=== PATIENT | female | born 1960 | race Caucasian/White ===

== ENCOUNTER 2017-11-14 13:31 | Inpatient (IN) | payer BC, SELFPAY ==
[2017-11-14] VITALS (7 sets, daily range): BP systolic 132–155; BP diastolic 81–111; PULSE 82–134; RESP 18–24; TEMP 36.7–36.9; O2SAT 95–98; BMI 37.3; BMI 34.1
--- NOTE | 2017-11-14 13:45 | XR_ITS ---
XR chest 2V HISTORY: Shortness of breath ITS.REASON: sob ORDERING PHYSICIAN: Arnoldo Roy MD PATIENT AGE: 56 years COMPARISON: None available FINDINGS: There is cardiomegaly with pulmonary venous congestion and interstitial edema with small bilateral effusions consistent with congestive heart failure. No acute bony anomalies. IMPRESSION: Congestive heart failure with interstitial edema and small bilateral effusions.
[2017-11-14 14:14] LABS: ABG Base Excess -1.7 mmol/L (-2.4-2.3); ABG Oxygen Saturation 95 % (90-100); ABG PCO2 31.2 mmhg (35.0-45.0); ABG PH 7.47 mmol/L (7.35-7.45); ABG PO2 68.7 mmhg (80-100)
[2017-11-14 14:15] LABS: Allen's Test ACCEPTABLE; Oxygen ROOM AIR %; Source L RADIAL
[2017-11-14 14:31] LABS: Alanine Aminotransferase 24 U/L (12-78); Albumin Level 3.9 gm/dL (3.4-5.0); Alkaline Phosphatase 101 U/L (46-116); Anion Gap 15.2 mEq/L (5-15); Aspartate Amino Transferase 16 U/L (15-37); Bilirubin,Total 0.4 mg/dL (0.2-1.0); Blood Urea Nitrogen 14 mg/dL (7-18); Calcium 8.7 mg/dL (8.5-10.1); Carbon Dioxide 26 mmol/L (21.0-32.0); Chloride 105 mmol/L (98-107); Creatinine Clearance Estimated 152 mL/min (0-300); Creatinine,Serum 0.77 mg/dL (0.55-1.02); Estimated Glomerular Filt Rate 78 ml/min (>60); GFR (African American) 94 ML/MIN (>60); Globulin 3.9 gm/dl (1.3-3.2); Glucose 105 mg/dL (74-106); Potassium 4.2 mmoL/L (3.5-5.1); Sodium 142 mmol/L (136-145); Total Protein,Serum 7.8 gm/dL (6.4-8.2)
[2017-11-14 14:35] LABS: Basophils # 0.1 K/mm3 (0-0.2); Basophils % 0.6 % (0.1-2.0); Eosinophils # 0.4 K/mm3 (0.0-0.4); Eosinophils % 3.1 % (0.1-12.0); Hematocrit 42.9 % (37.0-47.0); Hemoglobin 13.9 g/dL (12.2-16.2); Lymphocytes # 3.4 K/mm3 (0.7-4.5); Lymphocytes % 29.3 K/mm3 (10-50); Mean Corpuscular HGB Conc 32.3 g/dL (31.8-35.4); Mean Corpuscular Hemoglobin 28.2 pg (27.0-31.2); Mean Corpuscular Volume 87.1 fl (81-99); Mean Platelet Volume 8.2 fl (7.4-10.4); Monocytes # 0.5 K/mm3 (0.1-1.0); Monocytes % 4.6 % (1.7-9.3); Neutrophils # 7.2 K/mm3 (1.8-7.8); Neutrophils % 62.4 % (37.0-80.0); Platelet Count 315 K/mm3 (142-424); Red Blood Count 4.93 M/mm3 (4.20-5.40); Red Cell Distribution Width 13.8 % (11.5-17.5); White Blood Count 11.6 K/mm3 (4.8-10.8)
[2017-11-14 14:42] LABS: D-Dimer 2040 (0-400)
--- NOTE | 2017-11-14 14:57 | CA_ITS ---
PROCEDURE: 2-D M-mode and color Doppler study INDICATIONS FOR THE TEST: Chest pain COPD Heart Murmur Tobacco Smoking+ Palpitations+ Fatigue Syncope Edema Hypertension Diabetes Mellitus Rheumatic Fever SOB+BLACK[place] Obesity Hyperlipidemia Family History HD Additional History Chest pressure PATIENT INFORMATION HEIGHT: 70 WEIGHT:260 GENDER: Female B/P: 135/96 2-D/M-MODE INTERPRETATION: 2-D MEASUREMENTS OBSERVED VALUES IN CMS Right Ventricular Dimension (RVDd) 1.9 Interventricular Septum (Thickness)(IVsd) 1.1 Left Ventricular Internal Dimensions(LVIDd) 6.3 Left Ventricular Posterior Wall (Thickness)(LVPWd) 0.9 Aortic Root 3.3 Aortic Cusp Separation 2.1 Left Atrial Dimensions (LAD) 4.6 2D 1. Left atrium is moderately enlarged, left ventricle is moderately dilated, left ventricle wall thickness is upper limit of the normal, there is severely reduced left ventricular systolic function, visually estimated ejection fraction approximately 20%, left ventricle is globally hypokinetic. 2. The right atrium and right ventricle are relatively normal size and function. 3. The aortic valve is minimally thickened and fibrosed. 4. The mitral valve leaflets are minimally thickened, there is degenerative changes seen in both anterior and posterior mitral leaflet. 5. The pulmonic valve is poorly visualized. 6. The tricuspid valve leaflets are minimally thickened. 7. No significant pericardial effusion noted. DOPPLER INTERROGATION: Doppler interrogation of the aortic, mitral and tricuspid valvular presence of moderate to severe mitral and moderate tricuspid regurgitation, calculated right ventricular systolic pressure is 71 mmHg consistent with severe pulmonary hypertension. Diastolic parameters are inconclusive. CONCLUSION: 1. Moderately enlarged left atrium, moderately dilated left ventricle, severely reduced left ventricular systolic function, visually estimated ejection fraction 20%, left ventricle is globally hypokinetic, diastolic parameters are inconclusive. 2. Moderate to severe mitral and moderate tricuspid regurgitation, calculated right ventricular systolic pressure is 71 mmHg consistent with severe pulmonary hypertension. 3. No significant pericardial effusion noted.
--- NOTE | 2017-11-14 15:12 | CT_ITS ---
CT angio chest HISTORY: Chest pain with elevated d-dimer and shortness breath ITS.REASON: SOB ELEVATED D DIMER ORDERING PHYSICIAN: Arnoldo Roy MD PATIENT AGE: 56 years TECHNIQUE: Axial images obtained following the administration of 75 mL of Isovue 370 . Sagittal, and coronal reformatted images are also generated and reviewed. COMPARISON: None FINDINGS: No evidence of pulmonary embolus. Cardiomegaly with interstitial edema and small bilateral effusions consistent with congestive heart failure. There is some groundglass density scattered throughout both lungs consistent with pulmonary edema. Some fissural fluid is also noted. Band of increased density is present in the right lung base and may related to developing pulmonary edema or atelectatic change. No evidence of aortic aneurysm. No acute bony anomalies evident. There is mild prominence of the main pulmonary artery with a pulmonary artery ratio of greater than 1 which may be seen with pulmonary arterial hypertension. Reflux of contrast is noted into the inferior vena cava and hepatic veins which may be seen with right heart strain. IMPRESSION: 1. No evidence of pulmonary embolus. 2. Congestive heart failure with bilateral effusions and interstitial edema. 3. Possible right heart strain
[2017-11-14 15:23] LABS: Amphetamine/Metha Screen,Urine Positive ng/mL (<1000); Barbiturates Screen,Urine Negative ng/mL (<200); Benzodiazepines Screen,Urine Negative ng/mL (200); Cannabinoid Screen,Urine Negative ng/mL (<50); Cocaine Screen,Urine Negative ng/g (<300); Methadone Screen,Urine Negative ng/mL (<300); Opiate Screen,Urine Negative ng/mL (<300); Phencyclidine Screen,Urine Negative ng/mL (<25)
[2017-11-14 15:26] LABS: CKMB Relative Index 1.5 U/L (0-4.0); Creatine Kinase 139 U/L (26-192); Creatine Kinase MB 2.1 mg/ml (0.0-3.6); Troponin I 0.03 ng/ml (0.00-0.06)
--- NOTE | 2017-11-14 15:33 | PC.NURSE ---
CV lab at bedside at this time.
--- NOTE | 2017-11-14 16:00 | HMH.EDGENADL ---
ED Disposition Clinical Impression: Sinus tachycardia Congestive heart failure Qualifiers: Congestive heart failure type: diastolic Congestive heart failure chronicity: acute Qualified Code(s): I50.31 - Acute diastolic (congestive) heart failure Disposition: Admitted As Inpatient Condition on Discharge: Critical Time of Disposition: 16:30 - Critical Care Critical Care Time: Yes Attestation: On 11/14/17, the high probability of a clinically significant, sudden or life threatening deterioration of the following system(s) required my full and direct attention, intervention and personal management. The time I documented below is in addition to time spent performing reported procedures but includes the following listed in this critical care notation. Total Critical Care Time: 90 Vital system(s) involved:: Circulatory Failure My critical care processes included: Assessment & monitoring of V/S, Initial and Re-exams, Data Review/Interpretation, Coordinating Care, Medication Orders and management, Documentation Medical Decision Making - Medical Records Medical records reviewed: Yes: I reviewed the patient's medical records. Vital Signs: 11/14/17 13:39 11/14/17 14:16 11/14/17 14:32 Temperature 98.4 F Temperature Source Oral Pulse Rate 99 H Pulse Rate [Right Brachial] 134 H 100 H Respiratory Rate 24 Blood Pressure [Right Arm] 155/90 136/96 Blood Pressure Mean [Right Arm] 111 109 Blood Pressure Source [Right Arm] Automatic Cuff Blood Pressure Position [Right Arm] Sitting 02 Sat by Pulse Oximetry 98 97 Oxygen Delivery Method Room Air Room Air 11/14/17 16:23 Temperature Temperature Source Pulse Rate Pulse Rate [Right Brachial] 120 H Respiratory Rate Blood Pressure [Right Arm] 132/111 Blood Pressure Mean [Right Arm] 118 Blood Pressure Source [Right Arm] Automatic Cuff Blood Pressure Position [Right Arm] Sitting 02 Sat by Pulse Oximetry 97 Oxygen Delivery Method Room Air - Lab Data Lab results reviewed: Yes: I reviewed the patient's lab results. Lab Results 11/14/17 13:53: WBC 11.6 H, RBC 4.93, Hgb 13.9, Hct 42.9, MCV 87.1, MCH 28.2, MCHC 32.3, RDW 13.8, Plt Count 315, MPV 8.2, Neut % (Auto) 62.4, Lymph % (Auto) 29.3, [place] % (Auto) 4.6, Eos % (Auto) 3.1, Baso % (Auto) 0.6, Neut # (Auto) 7.2, Lymph # (Auto) 3.4, [place] # (Auto) 0.5, Eos # (Auto) 0.4, Baso # (Auto) 0.1 11/14/17 13:53: Sodium 142, Potassium 4.2, Chloride 105, Carbon Dioxide 26, Anion Gap 15.2 H, BUN 14, Creatinine 0.77, Estimated Creat Clear 152, Estimated GFR 78, Est GFR ( Amer) 94, Glucose 105, Calcium 8.7, Total Bilirubin 0.4, AST 16, ALT 24, Alkaline Phosphatase 101, Total Protein 7.8, Albumin 3.9, Globulin 3.9 H, Albumin/Globulin Ratio 1.0 L, TSH 2.00 11/14/17 13:53: D-Dimer 2040 H* 11/14/17 13:53: B-Natriuretic Peptide 375 H 11/14/17 13:53: Specimen Source L radial, O2 % Room air, ABG pH 7.47 H, ABG pCO2 31.2 L, ABG pO2 68.7 L, ABG HCO3 22.0, ABG Total CO2 23.0, ABG O2 Saturation 95, ABG Base Excess -1.7, Gerard Test Acceptable 11/14/17 13:53: Total Creatine Kinase 139, CK-MB (CK-2) 2.1, CK-MB (CK-2) Rel Index 1.5, Troponin I 0.03 11/14/17 14:30: Urine Opiates Screen Negative, Ur Barbituates Screen Negative, Ur Phencyclidine Scrn Negative, Ur Amphetamines Screen Positive H, U Methamphetamines Scrn Negative, U Benzodiazepines Scrn Negative, Urine Cocaine Screen Negative, U Marijuana (THC) Screen Negative Result diagrams: 11/14/17 13:53 11/14/17 13:53 Orders (Tests/Meds): ED MEDICATIONS Generic Name Dose Route Start Last Admin Trade Name Freq PRN Reason Stop Dose Admin Carvedilol 3.125 mg 11/15/17 09:00 11/15/17 08:36 Coreg 3.125mg Tablet PO 12/15/17 08:59 3.125 mg BID BECKY Administration Digoxin 125 mcg 11/15/17 09:00 11/15/17 08:35 Digoxin 0.125mg Tablet PO 12/15/17 08:59 125 mcg DAILY BECKY Administration Fentanyl Citrate 50 mcg 11/15/17 08:06 Fentanyl 100mcg/2ml Vial IV 11/16/17 0
--- NOTE | 2017-11-14 17:15 | PC.NURSE ---
pt has urinated 1250ml while in the ed
[2017-11-14 18:59] LABS: CKMB Relative Index 1.4 U/L (0-4.0); Creatine Kinase 138 U/L (26-192); Creatine Kinase MB 1.9 mg/ml (0.0-3.6); Troponin I 0.03 ng/ml (0.00-0.06)
--- NOTE | 2017-11-14 19:10 | PC.NURSE ---
PT FULL CODE. REPORT FROM [facility]
--- NOTE | 2017-11-14 19:38 | PC.NURSE ---
56 YEAR OLD WHITE FEMALE PRESENTED TO THE ER WITH COMPLAINTS OF SOB. SHE STATES SHE HAS BEEN SICK WITH AN URI INFECTION AND TREATING HERSELF. 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 SHE WAS GIVEN FLUIDS AND LASIX IN THE ER AND STATES SHE DOES FEEL SOME BETTER. LUNG ASSESSMENT REVEALS DIMINISHED LUNG SOUNDS IN THE BASES AND CRACKLES RIGHT UPPER LOBE. SHE STATES SHE HAS HAD A PRODUCTIVE COUGH WITH YELLOW SPUTUM. SHE IS ON A HEART MONITOR AND THIS SHOWS SINUS TACH AT THIS TIME. SHE HAS A CONSULT IN THE AM WITH DR. SILVA, PLAN IS TO MAKE HER NPO AFTER MIDNIGHT PENDING THIS CONSULT. SHE STATES SHE IS VERY TIRED AND WOULD LIKE TO REST HER IS AT BEDSIDE. WILL CONTINUE TO MONITOR. RANDI IVY, MSN, RN
[2017-11-15] VITALS (24 sets, daily range): BP systolic 107–173; BP diastolic 61–97; PULSE 92–110; RESP 16–20; TEMP 36.4–36.8; O2SAT 90–96
--- NOTE | 2017-11-15 04:46 | PC.NURSE ---
PT TOOK SHOWER BEGINNING OF SHIFT, CONSULT THIS AM WITH DR. SILVA. NPO SINCE MIDNIGHT. IV SECURE AND PATENT, SALINE LOCK. NO C/O SOA OR CHEST PAIN REPORTED. SATS WNL ON ROOM AIR. NO C/O PAIN OR DISCOMFORT REPORTED. SLEPT LONG INTERVALS. PT STABLE. WILL CONTINUE TO MONITOR. REPORT TO BE GIVEN TO ONCOMING NURSE.
--- NOTE | 2017-11-15 07:24 | HMH.PHAVTE ---
[facility] Pharmacy VTE Monitoring - Patient Demographics Admission date: 11/14/17 Report Date: 11/15/17 Time: 07:24 Allergies/Adverse Reactions: Patient Allergies No Known Allergies Allergy (Verified 11/14/17 14:40) Height: 1.78 m Weight: 108.21 kg Patient Problems: Current Active Problems Congestive heart failure (Acute) - VTE Risk Labs: VTE Related Lab Results Hgb 13.9 g/dL (12.2-16.2) 11/14/17 13:53 Hct 42.9 % (37.0-47.0) 11/14/17 13:53 Plt Count 315 K/mm3 (142-424) 11/14/17 13:53 BUN 14 mg/dL (7-18) 11/14/17 13:53 Creatinine 0.77 mg/dL (0.55-1.02) 11/14/17 13:53 Estimated Creat Clear 152 mL/min (0-300) 11/14/17 13:53 Was VTE Risk Assessment Performed: Yes VTE Score: 3 VTE Risk Level: Low Risk - Prophylaxis VTE Prophylaxis Ordered?: Yes Types of VTE Prophylaxis: TEDS Knee High Location of Applied Device: Bilateral Lower Extremeties - VTE Diagnosis Confirmed Treatment or plan recommended: Continue Current Treatment
--- NOTE | 2017-11-15 07:56 | HMH.CARDCON2 ---
History of Present Illness Consult date: 11/15/17 Requesting physician: Sammy Baker Consult reason: shortness of breath Chief complaint: SOA History of present illness: 56-year-old white female admitted through the emergency department for increasing shortness of breath over the last several days. Patient relates 3-4 weeks of recurrent upper respiratory infections with cough and shortness of breath culminated in being awakened from sleep with shortness of breath and being unable to perform her functions at work yesterday. Patient denies any significant chest pain or pressure recently. She does smoke about a pack a day but she denies hypertension, hyperlipidemia or family history of coronary artery disease. In the emergency department patient had an echocardiogram which showed an ejection fraction of about 20% with global reduced systolic function. Noted to have moderate to severe MR and TR. Patient has been under a lot of emotional stress recently with planning a wedding for her daughter and her son getting ready to be shipped off for the . Patient received IV Lasix in the emergency department and has diuresed about 2 L of fluid with significant improvement in breathing. Troponins have returned normal. EKG reveals sinus tachycardia with poor R-wave progression anteriorly no acute ST segment elevation. Cardiology consulted for evaluation recommendations. Review of Systems - *Cardiovascular Reports shortness of breath, Reports shortness of breath with activity - *Respiratory Reports shortness of breath, Reports shortness of breath with activity - *Gastrointestinal Denies black, tarry stools, Denies nausea - *Musculoskeletal Reports joint pain - *Neurologic Denies lack of coordination [facility] History Amputation: No Fractures: No - *Social History Educational Level: Completed College Smoking Status: Current every day smoker Tobacco Type: cigarettes # Packs/Day (cigarettes): 1 Alcohol Intake: never Occupational Status: employed Household Members: significant other - Psychiatric History Expresses thoughts of harming self/others: None Suicide Plan Description: No Plan Meds Home Medications Medication Instructions Recorded Confirmed Type Loratadine/Pseudoephedrine 1 each PO DAILY 11/14/17 11/14/17 History [Claritin-D 24 Hour Tablet] Allergies Allergy/AdvReac Type Severity Reaction Status Date / Time No Known Allergies Allergy Verified 11/14/17 14:40 Exam Vital signs and Labs for Last 24 Hours: Temp Pulse Resp BP Pulse Ox 97.5 F L 107 H 18 150/82 95 11/15/17 04:00 11/15/17 04:00 11/15/17 04:00 11/15/17 04:00 11/15/17 04:00 Laboratory Results - last 24 hr 11/14/17 18:18: Total Creatine Kinase 138, CK-MB (CK-2) 1.9, CK-MB (CK-2) Rel Index 1.4, Troponin I 0.03 I & O for Last 24 hours: Intake & Output 11/12/17 11/13/17 11/14/17 11/15/17 11:59 11:59 11:59 11:59 Intake Total 20 Balance 20 Weight 238 lb 9 oz - *Routine Neck Exam Absent: JVD, carotid bruit - *Routine Respiratory Exam Present: CTA bilaterally. Absent: rhonchi, wheezes - *Routine Cardiovascular Exam Present: RRR, murmur, tachycardia. Absent: gallop, rubs - *Routine Extremities Exam Absent: edema - *Routine Neurological Exam Present: alert, oriented X3, moving all extremities Results 11/14/17 13:53 11/14/17 13:53 Cardiac Enzymes 11/14/17 Range/Units 18:18 CK-MB (CK-2) 1.9 (0.0-3.6) mg/ml Troponin I 0.03 (0.00-0.06) ng/ml Intake and Output 11/14/17 11/15/17 11/15/17 19:59 03:59 11:59 Intake Total 20 / 20 Balance 20 Intake: Intake, Other Amount 20 / 20 Other: Intake, Other Source Saline Solution Weight 238 lb 9 oz Patient Weight 11/15/17 11:59 Weight 238 lb 9 oz EKG interpretations - EKG EKG results cardiology: sinus rhythm EKG shows: tachycardia Assessment and Plan
--- NOTE | 2017-11-15 08:00 | P.CONS_ITS ---
History of Present Illness Consult date: 11/15/17 Requesting physician: Sammy Baker Consult reason: shortness of breath Chief complaint: SOA History of present illness: 56-year-old white female admitted through the emergency department for increasing shortness of breath over the last several days. Patient relates 3-4 weeks of recurrent upper respiratory infections with cough and shortness of breath culminated in being awakened from sleep with shortness of breath and being unable to perform her functions at work yesterday. Patient denies any significant chest pain or pressure recently. She does smoke about a pack a day but she denies hypertension, hyperlipidemia or family history of coronary artery disease. In the emergency department patient had an echocardiogram which showed an ejection fraction of about 20% with global reduced systolic function. Noted to have moderate to severe MR and TR. Patient has been under a lot of emotional stress recently with planning a wedding for her daughter and her son getting ready to be shipped off for the . Patient received IV Lasix in the emergency department and has diuresed about 2 L of fluid with significant improvement in breathing. Troponins have returned normal. EKG reveals sinus tachycardia with poor R-wave progression anteriorly no acute ST segment elevation. Cardiology consulted for evaluation recommendations. Review of Systems - *Cardiovascular Reports shortness of breath, Reports shortness of breath with activity - *Respiratory Reports shortness of breath, Reports shortness of breath with activity - *Gastrointestinal Denies black, tarry stools, Denies nausea - *Musculoskeletal Reports joint pain - *Neurologic Denies lack of coordination [facility] History Amputation: No Fractures: No - *Social History Educational Level: Completed College Smoking Status: Current every day smoker Tobacco Type: cigarettes # Packs/Day (cigarettes): 1 Alcohol Intake: never Occupational Status: employed Household Members: significant other - Psychiatric History Expresses thoughts of harming self/others: None Suicide Plan Description: No Plan Meds Home Medications Medication Instructions Recorded Confirmed Type Loratadine/Pseudoephedrine 1 each PO DAILY 11/14/17 11/14/17 History [Claritin-D 24 Hour Tablet] Allergies Allergy/AdvReac Type Severity Reaction Status Date / Time No Known Allergies Allergy Verified 11/14/17 14:40 Exam Vital signs and Labs for Last 24 Hours: Temp Pulse Resp BP Pulse Ox 97.5 F L 107 H 18 150/82 95 11/15/17 04:00 11/15/17 04:00 11/15/17 04:00 11/15/17 04:00 11/15/17 04:00 Laboratory Results - last 24 hr 11/14/17 18:18: Total Creatine Kinase 138, CK-MB (CK-2) 1.9, CK-MB (CK-2) Rel Index 1.4, Troponin I 0.03 I & O for Last 24 hours: Intake & Output 11/12/17 11/13/17 11/14/17 11/15/17 11:59 11:59 11:59 11:59 Intake Total Balance Weight 238 lb 9 oz - *Routine Neck Exam Absent: JVD, carotid bruit - *Routine Respiratory Exam Present: CTA bilaterally. Absent: rhonchi, wheezes - *Routine Cardiovascular Exam Present: RRR, murmur, tachycardia. Absent: gallop, rubs - *Routine Extremities Exam Absent: edema - *Routine Neurological Exam Present: alert, oriented X3, moving all extremities Resul
--- NOTE | 2017-11-15 08:14 | IR_ITS ---
CARDIAC CATHETERIZATION DATE OF CATHETERIZATION:11/15/2017 10:39 AM PROCEDURES: 1. Right heart catheterization 2. Left heart catheterization 3. Left ventriculogram 4. Selective coronary angiogram INDICATION FOR TEST: 1. Systolic congestive heart failure ejection fraction 20% 2. Acute pulmonary edema Informed consent was obtained prior to the procedure. COMPLICATIONS: None ESTIMATED BLOOD LOSS: Less than 10 ml. TECHNIQUE: One percent lidocaine was used to anesthetize the right anterior aspect of the right neck. The right internal jugular vein was accessed via the Seldinger technique and a 7 [place] sheath was placed in the right internal jugular vein. Following this one percent lidocaine was used to anesthetize the right anterior aspect of the right wrist. The right radial artery was accessed via the Seldinger technique and a 6 [place] hydrophilic sheath was placed in the right radial artery. An arterial cocktail using nitroglycerin and verapamil and heparin was strictured intra-arterially. A Poneto-Lucille catheter was used to perform right heart catheterization while a trap catheter was used to perform left heart catheterization left ventriculogram and selective coronary angiography. At the end of the procedure the arterial sheath was removed good hemostasis was achieved using TR banding patient was transferred to the postop holding area in stable condition ANGIOGRAPHIC RESULTS: 1. The left main artery normal 2. The left anterior descending artery has normal 3. The circumflex artery is non dominant and has normal 4. The right coronary artery dominant normal 5. The FUENTES ventriculogram reveals severely dilated with ejection fraction of 15-20% The left ventricular end-diastolic pressure 20 mmHg HEMODYNAMICS: Right atrial pressure is 12 mm Hg. Pulmonary arterial pressure is 37/25 mm Hg. Pulmonary artery occlusion pressure is 22 mm Hg. SATURATIONS: RA is 70 %. PA is 67 %. IMPRESSION: 1. Normal coronary arteries 2. 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 Severely reduced ejection fraction 4. Moderate pulmonary hypertension PLAN: 1. Standard therapy for systolic heart failure including day inhibitors carvedilol loop diuretics combined with Aldactone and low-dose to junction. 2. I recommend a lifevest be worn while awaiting improvement in cardiomyopathy
--- NOTE | 2017-11-15 08:25 | HMH.HP ---
*Admission Date: 11/14/17 *Chief complaint: sob *History of present illness: 56-year-old white female admitted through the emergency department for increasing shortness of breath over the last several days. Patient relates 3-4 weeks of recurrent upper respiratory infections with cough and shortness of breath culminated in being awakened from sleep with shortness of breath and being unable to perform her functions at work yesterday. Patient denies any significant chest pain or pressure recently. She does smoke about a pack a day but she denies hypertension, hyperlipidemia or family history of coronary artery disease. In the emergency department patient had an echocardiogram which showed an ejection fraction of about 20% with global reduced systolic function. Noted to have moderate to severe MR and TR. Patient has been under a lot of emotional stress recently with planning a wedding for her daughter and her son getting ready to be shipped off for the . Patient received IV Lasix in the emergency department and has diuresed about 2 L of fluid with significant improvement in breathing. Troponins have returned normal. EKG reveals sinus tachycardia with poor R-wave progression anteriorly no acute ST segment elevation. Cardiology consulted for evaluation recommendations. [facility] History I have reviewed the patient's past medical history: Yes Amputation: No Fractures: No - *Social History Educational Level: Completed College Smoking Status: Current every day smoker Tobacco Type: cigarettes # Packs/Day (cigarettes): 1 Alcohol Intake: never Occupational Status: employed Household Members: significant other - Psychiatric History Expresses thoughts of harming self/others: None Suicide Plan Description: No Plan Review of Systems - Constitutional Denies headache(s) - Eyes Denies itchy eyes - ENT Denies headache(s) - *Cardiovascular Reports shortness of breath, Denies leg swelling - *Respiratory Denies excessive phlegm production - *Gastrointestinal Denies cramping - *Musculoskeletal Denies decreased muscle mass - Integumentary/Breasts Denies rash - *Neurologic Denies lack of coordination, Denies numbness - Psychiatric Denies difficulty concentrating - Endocrine Denies heat intolerance - Hematologic/Lymphatic Denies enlarged lymph nodes - Allergic/Immunologic Denies lip swelling Meds Home Medications Medication Instructions Recorded Confirmed Type Loratadine/Pseudoephedrine 1 each PO DAILY 11/14/17 11/14/17 History [Claritin-D 24 Hour Tablet] Allergies Allergy/AdvReac Type Severity Reaction Status Date / Time No Known Allergies Allergy Verified 11/14/17 14:40 Exam Vital signs and Labs for Last 24 Hours: Temp Pulse Resp BP Pulse Ox 97.5 F L 108 H 20 144/97 96 11/15/17 04:00 11/15/17 08:06 11/15/17 08:06 11/15/17 08:06 11/15/17 08:06 Laboratory Results - last 24 hr 11/14/17 18:18: Total Creatine Kinase 138, CK-MB (CK-2) 1.9, CK-MB (CK-2) Rel Index 1.4, Troponin I 0.03 I & O for Last 24 hours: Intake & Output 11/12/17 11/13/17 11/14/17 11/15/17 11:59 11:59 11:59 11:59 Intake Total Balance Weight 238 lb 9 oz - Constitutional no acute distress - *Routine HEENT Exam Head: Present: normocephalic Eye: Present: PERRL ENT: Present: mucous membranes moist - *Routine Neck Exam Present: supple, full ROM - *Routine Respiratory Exam Present: decreased breath sounds, crackles - *Routine Cardiovascular Exam Present: RRR - *Routine Abdominal Exam Present: soft, normoactive bowel sounds - *Routine Skin Exam Present: intact, warm - *Routine Neurological Exam Present: alert, oriented X3 - Routine Psychiatric Exam Present: normal affect, normal thought process H&P: Result - Labs Labs: Cardiac Enzymes 11/14/17 Range/Units 18:18 Total Creatine Kinase 138 (26-192) U/L CK-MB (CK-2) 1.9 (0
[2017-11-15 08:35] LABS: CKMB Relative Index 1.2 U/L (0-4.0); Creatine Kinase 110 U/L (26-192); Creatine Kinase MB 1.3 mg/ml (0.0-3.6); Troponin I 0.04 ng/ml (0.00-0.06)
--- NOTE | 2017-11-15 18:33 | PC.NURSE ---
56 YEAR OLD WHITE FEMALE PRESENTED TO THE ER ON 11/14/17 WITH A CHIEF COMPLAINT OF SHORTNESS OF BREATH. SHE STATES SHE HAD AN URI AND HAVE BEEN TAKING OTC MEDICATIONS. 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 SHE WAS TAKEN TO THE COUNTER POCKET SEWER THIS AM FOR A HEART CATH. SHE LEFT THE FLOOR AT APPROXIMATELY 11AM AND RETURNED AT APPROXIMATELY 1215. IT WAS RECOMMENDED FOR HER TO WEAR A LIFEVEST. THE OUTLET MANAGER FROM [employer] PRESENTED AT THE HOSPITAL AT APPROXIMATELY 1730 WITH THE VEST AND INITIATED THIS. THE LIFEVEST WILL CONSTANTLY MONITOR HER HEART. ALL QUESTIONS WERE ANSWERED BY THE OUTLET MANAGER HERLINDA. THE PATIENT TOLERATED WELL AND THE LIFE VEST IS NOW ON. PATIENT HAS SLEPT MOST OF THE AFTERNOON WITH FAMILY AT BEDSIDE. SHE DENIES PAIN OR DISCOMFORT AT THIS TIME. WE WILL CONTINUE TO MONITOR. RANDI IVY, MSN, RN
--- NOTE | 2017-11-15 19:10 | PC.NURSE ---
PT FULL CODE, REPORT FROM [email or web address]
[2017-11-16] VITALS (11 sets, daily range): BP systolic 114–128; BP diastolic 60–79; PULSE 90–110; RESP 16–20; TEMP 36.7–36.9; O2SAT 91–95; BMI 34.1
[2017-11-16 06:33] LABS: Anion Gap 14.3 mEq/L (5-15); Blood Urea Nitrogen 13 mg/dL (7-18); Carbon Dioxide 25 mmol/L (21.0-32.0); Chloride 106 mmol/L (98-107); Creatinine Clearance Estimated 129 mL/min (0-300); Creatinine,Serum 0.83 mg/dL (0.55-1.02); Estimated Glomerular Filt Rate 71 ml/min (>60); GFR (African American) 86 ML/MIN (>60); Glucose 96 mg/dL (74-106); Potassium 4.3 mmoL/L (3.5-5.1); Sodium 141 mmol/L (136-145)
--- NOTE | 2017-11-16 09:27 | HMH.ACPN2 ---
Internal Medicine - PN: Subj *Date: 11/16/17 *Time: 09:27 Exam Vital signs and Labs for Last 24 Hours: Temp Pulse Resp BP Pulse Ox 98.2 F 93 H 18 114/79 93 L 11/16/17 07:37 11/16/17 07:37 11/16/17 07:37 11/16/17 07:37 11/16/17 07:37 Laboratory Results - last 24 hr 11/16/17 06:05: Sodium 141, Potassium 4.3, Chloride 106, Carbon Dioxide 25, Anion Gap 14.3, BUN 13, Creatinine 0.83, Estimated Creat Clear 129, Estimated GFR 71, Est GFR ( Amer) 86, Glucose 96 I & O for Last 24 hours: Intake & Output 11/13/17 11/14/17 11/15/17 11/16/17 11:59 11:59 11:59 11:59 Intake Total 20 / 20 620 / 620 Output Total 500 / 500 Balance 20 / 20 120 / 120 Weight 238 lb 9 oz - *Routine HEENT Exam Head: Present: normocephalic Eye: Present: PERRL ENT: Present: mucous membranes moist - *Routine Neck Exam Present: supple, full ROM - *Routine Respiratory Exam Present: CTA bilaterally - *Routine Cardiovascular Exam Present: murmur, tachycardia - *Routine Extremities Exam Present: full ROM - *Routine Neurological Exam Present: alert, oriented X3, CN II-XII intact Assessment and Plan (1) Cardiomyopathy Current visit: Yes Status: Acute Category: Medical Code(s): I42.9 - Cardiomyopathy, unspecified (2) Congestive heart failure Current visit: Yes Status: Acute Qualifiers: Congestive heart failure type: diastolic Congestive heart failure chronicity: acute Qualified Code(s): I50.31 - Acute diastolic (congestive) heart failure Category: Medical Code(s): I50.9 - Heart failure, unspecified (3) Pulmonary hypertension Current visit: Yes Status: Acute Category: Medical Code(s): I27.20 - Pulmonary hypertension, unspecified
--- NOTE | 2017-11-16 10:41 | PC.NURSE ---
PT STATES SHE IS FEELING WELL THIS MORNING, NO COMPLAINTS OF CP OR SOA. FAMILY IS IN THE ROOM, ALERT AND ORIENTED X3, NO EDEMA NOTED. PT HAS AMBULATED AROUND THE ROOM. LUNG SOUNDS CLEAR, BOWEL SOUNDS NORMAL, EATING AND DRINKING WELL. WILL CONTINUE TO MONITOR
[2017-11-17] VITALS: BP 123/75; PULSE 101; PULSE 106; RESP 16; TEMP 36.7; O2SAT 95
[2017-11-17 04:00] VITALS: BP 123/78; PULSE 97; PULSE 99; RESP 16; TEMP 37; O2SAT 95
[2017-11-17 07:20] VITALS: BP 125/81; PULSE 103; RESP 20; TEMP 36.6; O2SAT 90
[2017-11-17 08:00] VITALS: PULSE 90; O2SAT 90
--- NOTE | 2017-11-17 09:51 | HMH.DCSUM ---
General - General Admission date: 11/14/17 Discharge date: 11/17/17 HPI HPI: 56-year-old white female admitted through the emergency department for increasing shortness of breath over the last several days. Patient relates 3-4 weeks of recurrent upper respiratory infections with cough and shortness of breath culminated in being awakened from sleep with shortness of breath and being unable to perform her functions at work yesterday. Patient denies any significant chest pain or pressure recently. She does smoke about a pack a day but she denies hypertension, hyperlipidemia or family history of coronary artery disease. In the emergency department patient had an echocardiogram which showed an ejection fraction of about 20% with global reduced systolic function. Noted to have moderate to severe MR and TR. Patient has been under a lot of emotional stress recently with planning a wedding for her daughter and her son getting ready to be shipped off for the . Patient received IV Lasix in the emergency department and has diuresed about 2 L of fluid with significant improvement in breathing. Troponins have returned normal. EKG reveals sinus tachycardia with poor R-wave progression anteriorly no acute ST segment elevation. Cardiology consulted for evaluation recommendations. Objective Vital signs: Temp Pulse Resp BP Pulse Ox 97.9 F 103 H 20 125/81 90 L 11/17/17 07:20 11/17/17 07:20 11/17/17 07:20 11/17/17 07:20 11/17/17 07:20 no acute distress - *Routine HEENT Exam Head: Present: normocephalic Eye: Present: EOMI, PERRL ENT: Present: mucous membranes moist - *Routine Neck Exam Present: supple. Absent: JVD - *Routine Respiratory Exam Present: CTA bilaterally - *Routine Cardiovascular Exam Present: RRR, murmur, S4 - *Routine Abdominal Exam Present: soft - *Routine Extremities Exam Absent: edema - *Routine Skin Exam Present: intact - *Routine Neurological Exam Present: alert, oriented X3, CN II-XII intact - Routine Psychiatric Exam Present: normal affect Hospital Course Hospital Course: pt with card cath The left main artery normal 2. The left anterior descending artery has normal 3. The circumflex artery is non dominant and has normal 4. The right coronary artery dominant normal 5. The FUENTES ventriculogram reveals severely dilated with ejection fraction of 15-20% The left ventricular end-diastolic pressure 20 mmHg HEMODYNAMICS: Right atrial pressure is 12 mm Hg. Pulmonary arterial pressure is 37/25 mm Hg. Pulmonary artery occlusion pressure is 22 mm Hg. SATURATIONS: RA is 70 %. PA is 67 %. IMPRESSION: 1. Normal coronary arteries 2. 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 Severely reduced ejection fraction 4. Moderate pulmonary hypertension PLAN: 1. Standard therapy for systolic heart failure including day inhibitors carvedilol loop diuretics combined with Aldactone and low-dose to junction. 2. I recommend a lifevest be worn while awaiting improvement in cardiomyopathy Meds Home Medications Medication Instructions Recorded Confirmed Type Loratadine/Pseudoephedrine 1 each PO DAILY 11/14/17 11/14/17 History [Claritin-D 24 Hour Tablet] Allergies Allergy/AdvReac Type Severity Reaction Status Date / Time No Known Allergies Allergy Verified 11/14/17 14:40 Discharge Plan - Patient Discharge Instructions ACTIVITY: Continue current activity DIET: continue same diet - Follow up Plan Follow up with: Luis Jenkins MD [Staff Physician] - 11/20/17 Disposition: Home, Self-Usp Medications: Home Medications Medication Instructions Recorded Confirmed Type Loratadine/Pseudoephedrine 1 each PO DAILY 11/14/17 11/14/17 History [Claritin-D 24 Hour Tablet] Prescriptions/Medication Reconciliation: New Digoxin [Digoxin 0.125mg Tablet] 125 mcg PO DAILY #30 tab Furosemide [Lasix 40mg tablet] 40 mg PO DAILY #30 tab
[2017-11-17 10:26] VITALS: PULSE 91
[2017-11-17 12:00] VITALS: BP 135/66; PULSE 70; PULSE 97; RESP 20; TEMP 36.8; O2SAT 94
== END 2017-11-17 13:35 | disposition home or self-care (01) | DRG 865 ==
LOC: ER 16:00 → 2ND 17:10
PROVIDERS: Internal Medicine; Admitting Provider Emergency Medicine; Emergency Provider Emergency Medicine; Visit Provider Emergency Medicine
PROC: 4A023N8 Measurement of Cardiac Sampling and Pressure, Bilateral, Percutaneous Approach (ICD-10-PCS; principal; 2017-11-15 09:30)
DX: B33.24 Viral cardiomyopathy; I50.21 Acute systolic (congestive) heart failure; I42.8 Other cardiomyopathies; I27.20 Pulmonary hypertension, unspecified
CPT/HCPCS: 36415; 71046; 71275; 80048; 80053; 80305; 82550; 82553; 82803; 83880; 84443; 84484; 85025; 85378; 90686; 93005; 93041; 93306; 93460; 99152; 99153; 99282; C1725; C1769; C1894; J1644; Q9967

== ENCOUNTER → 2017-11-30 09:44 | Outpatient (CLI) | payer BC, SELFPAY ==
[2017-11-30 10:11] LABS: Anion Gap 10.4 mEq/L (5-15); Blood Urea Nitrogen 29 mg/dL (7-18); Carbon Dioxide 30 mmol/L (21.0-32.0); Chloride 103 mmol/L (98-107); Creatinine,Serum 0.77 mg/dL (0.55-1.02); Estimated Glomerular Filt Rate 78 ml/min (>60); GFR (African American) 94 ML/MIN (>60); Glucose 96 mg/dL (74-106); Potassium 4.4 mmoL/L (3.5-5.1); Sodium 139 mmol/L (136-145)
== END ==
PROVIDERS: Visit Provider Internal Medicine Cardiovascular Disease
DX: I42.9 Cardiomyopathy, unspecified (principal); I50.31 Acute diastolic (congestive) heart failure; I27.20 Pulmonary hypertension, unspecified; I42.8 Other cardiomyopathies; R60.9 Edema, unspecified; R06.09 Other forms of dyspnea
CPT/HCPCS: 36415; 80048

== ENCOUNTER → 2017-12-06 09:29 | Outpatient (CLI) | payer BC, SELFPAY ==
[2017-12-06 10:53] LABS: Anion Gap 13.4 mEq/L (5-15); Blood Urea Nitrogen 25 mg/dL (7-18); Carbon Dioxide 31 mmol/L (21.0-32.0); Chloride 99 mmol/L (98-107); Creatinine,Serum 0.78 mg/dL (0.55-1.02); Estimated Glomerular Filt Rate 76 ml/min (>60); GFR (African American) 92 ML/MIN (>60); Glucose 96 mg/dL (74-106); Potassium 4.4 mmoL/L (3.5-5.1); Sodium 139 mmol/L (136-145)
== END ==
PROVIDERS: Visit Provider Internal Medicine Cardiovascular Disease
DX: I42.9 Cardiomyopathy, unspecified (principal); I42.8 Other cardiomyopathies; R60.9 Edema, unspecified; I27.20 Pulmonary hypertension, unspecified; I50.31 Acute diastolic (congestive) heart failure; R06.09 Other forms of dyspnea
CPT/HCPCS: 36415; 80048

== ENCOUNTER → 2017-12-27 09:19 | Outpatient (CLI) | payer BC, SELFPAY ==
[2017-12-27 09:50] LABS: Anion Gap 11.6 mEq/L (5-15); Blood Urea Nitrogen 17 mg/dL (7-18); Carbon Dioxide 30 mmol/L (21.0-32.0); Chloride 101 mmol/L (98-107); Creatinine,Serum 0.78 mg/dL (0.55-1.02); Estimated Glomerular Filt Rate 76 ml/min (>60); GFR (African American) 92 ML/MIN (>60); Glucose 117 mg/dL (74-106); Potassium 3.6 mmoL/L (3.5-5.1); Sodium 139 mmol/L (136-145)
== END ==
PROVIDERS: Visit Provider Internal Medicine Cardiovascular Disease
DX: I50.23 Acute on chronic systolic (congestive) heart failure (principal); I42.8 Other cardiomyopathies; I27.20 Pulmonary hypertension, unspecified; R06.09 Other forms of dyspnea
CPT/HCPCS: 36415; 80048; 83880

== ENCOUNTER → 2018-01-03 13:45 | Outpatient (CLI) | payer BC, SELFPAY ==
--- NOTE | 2018-01-03 13:49 | CA_ITS ---
PROCEDURE: 2-D M-mode and color Doppler study INDICATIONS FOR THE TEST: Chest pain COPD Heart Murmur Tobacco Smoking Palpitations Fatigue Syncope Edema HypertensionXDiabetes Mellitus Rheumatic Fever SOB [place] ObesityXHyperlipidemia Family History HD Additional History CM,SOA, EF 2/18 20% PATIENT INFORMATION HEIGHT: 69 WEIGHT:240 GENDER: Female B/P:154/84 2-D/M-MODE INTERPRETATION: 2-D MEASUREMENTS OBSERVED VALUES IN CMS Right Ventricular Dimension (RVDd) 1.5 Interventricular Septum (Thickness)(IVsd) 1.3 Left Ventricular Internal Dimensions(LVIDd) 7.0 Left Ventricular Posterior Wall (Thickness)(LVPWd) 1.2 Aortic Root 3.5 Aortic Cusp Separation 2.2 Left Atrial Dimensions (LAD) 3.4 2D 1. Left atrium is mildly enlarged, left ventricle is mildly dilated, there is mild concentric left ventricular hypertrophy, visually estimated ejection fraction 30% left ventricle is globally hypokinetic. 2. The right atrium and right ventricle are normal size and contractility. 3. The aortic valve is minimally thickened and fibrosed. 4. The mitral and tricuspid valve leaflets are minimally thickened. 5. The pulmonic valve is poorly visualized 6. No significant pericardial effusion noted. DOPPLER INTERROGATION: Doppler interrogation of the aortic, mitral and tricuspid valvular presence of mild mitral and tricuspid regurgitation, tricuspid and jet velocity insufficient for calculation of the right ventricular systolic pressure, grade 1 diastolic dysfunction seen with tissue Doppler evidence of raised left atrial pressure. CONCLUSION: 1. Mildly left atrium, mildly dilated left ventricle, mild concentric left ventricular hypertrophy, visually estimated ejection fraction approximately 30%, left ventricle is globally hypokinetic, grade 1 diastolic dysfunction seen with tissue Doppler evidence of raised left atrial pressure. 2. Mild mitral and tricuspid regurgitation 3. No significant pericardial effusion noted.
== END ==
PROVIDERS: PCP Nurse Practitioner Family; Visit Provider Internal Medicine
DX: R00.0 Tachycardia, unspecified (principal); I27.20 Pulmonary hypertension, unspecified; I42.9 Cardiomyopathy, unspecified; I50.9 Heart failure, unspecified; R06.09 Other forms of dyspnea; I42.8 Other cardiomyopathies; R60.9 Edema, unspecified; I50.23 Acute on chronic systolic (congestive) heart failure
CPT/HCPCS: 93306

== ENCOUNTER → 2018-02-14 12:44 | Outpatient (CLI) | payer BC, SELFPAY ==
--- NOTE | 2018-02-14 12:47 | NM_ITS ---
Cardiac MUGA scan Indication for the test: Cardiomyopathy, congestive heart failure, hypertension, tobacco or shortness of breath Procedure: Patient received total of 25.4 mCi of technetium 99 sodium pretechnitate, resting cardiac MUGA scan was performed in the standard view. Results: Computer derived ejection fraction is 44% with no obvious regional wall motion abnormality.
== END ==
PROVIDERS: PCP Nurse Practitioner Family; Visit Provider Internal Medicine
DX: I42.9 Cardiomyopathy, unspecified (principal); I50.23 Acute on chronic systolic (congestive) heart failure; I42.8 Other cardiomyopathies; I27.20 Pulmonary hypertension, unspecified; I50.31 Acute diastolic (congestive) heart failure; R06.09 Other forms of dyspnea
CPT/HCPCS: 78473; A9512; A9560

== ENCOUNTER → 2020-05-19 15:31 | Outpatient (CLI) | payer BC, SELFPAY ==
--- NOTE | 2020-05-19 15:34 | XR_ITS ---
PROCEDURE: XR CHEST 2V CLINICAL HISTORY: dyspnea, CHF Six COMPARISON: CR CXR2V XR chest 2V from 11/14/[address] angio chest from 11/14/2017 CR CXR2V XR chest 2V from 10/17/2018 FINDINGS: The cardiomediastinal silhouette and pulmonary vascularity are within normal limits. Coronary artery calcifications. The lungs are clear without infiltrates, suspicious nodules, or pleural effusions. No acute bony abnormalities. There is minimal upper thoracic curvature convex right IMPRESSION: No acute findings. Dictated b Gerard Ridley MD 05/19/2020 16:11 Gerard Ridley MD in [facility] 05/19/2020 16:11
[2020-05-19 16:51] LABS: Basophils # 0.1 K/mm3 (0-0.2); Basophils % 0.6 % (0.1-2.0); Eosinophils # 0.4 K/mm3 (0.0-0.4); Eosinophils % 2.1 % (0.1-12.0); Hematocrit 42.9 % (37.0-47.0); Hemoglobin 14.5 g/dL (12.2-16.2); Lymphocytes # 4.5 K/mm3 (0.7-4.5); Lymphocytes % 24.9 % (10-50); Mean Corpuscular HGB Conc 33.9 g/dL (31.8-35.4); Mean Corpuscular Hemoglobin 29.9 pg (27.0-31.2); Mean Platelet Volume 8.1 fl (7.4-10.4); Monocytes # 0.8 K/mm3 (0.1-1.0); Monocytes % 4.3 % (1.7-9.3); Neutrophils # 12.2 K/mm3 (1.8-7.8); Neutrophils % 68.1 % (37.0-80.0); Platelet Count 438 K/mm3 (142-424); Red Blood Count 4.87 M/mm3 (4.20-5.40); Red Cell Distribution Width 14.7 % (11.5-17.5)
[2020-05-19 17:10] LABS: MANUAL DIFFERENTIAL MANUAL DIFFERENTIAL (MANUAL DIFF)
[2020-05-19 18:05] LABS: Chloride 102 mmol/L (98-107); Sodium 141 mmol/L (136-145)
[2020-05-19 18:08] LABS: Alanine Aminotransferase 43 U/L (12-78); Alkaline Phosphatase 123 U/L (38-126); Aspartate Amino Transferase 39 U/L (14-36); Bilirubin,Direct 0.1 mg/dl (0.0-0.4); Bilirubin,Indirect 0.3 mg/dL (0.0-0.9); Bilirubin,Total 0.4 mg/dl (0.2-1.3); Bilirubin,Unconjugated 0.2 mg/dL (0.0-1.1); Blood Urea Nitrogen 16 mg/dl (7-17); Carbon Dioxide 26 mmol/L (22.0-30.0); Estimated Glomerular Filt Rate 64 ml/min (>60); GFR (African American) 78 ML/MIN (>60); Glucose 128 mg/dl (74-100)
[2020-05-19 18:09] LABS: Albumin Level 4.3 g/dl (3.5-5.0); Total Protein,Serum 7.4 g/dl (6.3-8.2)
[2020-05-19 18:16] LABS: NT Pro Brain Natriuretic Pep. 80.5 pg/mL (0-125)
[2020-05-19 18:25] LABS: Free T4 (Free Thyroxine) 1.03 ng/dl (0.78-2.19)
[2020-05-19 18:38] LABS: Thyroid Stimulating Hormone 2.66 uIU/mL (0.465-4.68)
[2020-05-19 20:39] LABS: Eosinophils % 1 % (0-3); Lymphocytes % 29 % (10-50); Monocytes % 1 % (2-9); Neutrophils % 68 % (42-76); Platelet Estimate Normal; Stomatocytes 1+; Total Cells Counted 100
== END ==
PROVIDERS: Visit Provider Nurse Practitioner Family
DX: R06.00 Dyspnea, unspecified (principal); I27.20 Pulmonary hypertension, unspecified; I50.31 Acute diastolic (congestive) heart failure; I42.8 Other cardiomyopathies; I42.9 Cardiomyopathy, unspecified; R53.83 Other fatigue; R60.9 Edema, unspecified; R00.0 Tachycardia, unspecified
CPT/HCPCS: 36415; 71046; 80048; 80076; 83880; 84439; 84443; 85007; 85025

== ENCOUNTER → 2020-05-26 07:47 | Outpatient (CLI) | payer SELFPAY ==
--- NOTE | 2020-05-26 07:49 | CA_ITS ---
APPROVED REPORT EXAM: Comprehensive 2D, Doppler, and color-flow Echocardiogram Autoglazier: Alda Ashby RT(R) Ht: 5 ft 9 in Wt: 277lbs BSA: 2.37 BP: 148/64 mmHg Indications: CP, smoker, palpitations, edema, SOB 2D Dimensions LVOT 1.85 cm (M/F) 1.5-2.5 M-Mode Dimensions RVDd 2.80 cm (0.9-2.6) LVDd 4.25 cm (3.5-5.7) LVDs 3.14 cm (3.5-5.7) IVSd 0.98 cm (0.6-1.1) PWd 1.15 cm (0.6-1.1) EF (Teich) 51.60% FS 26.10% EDV (Teich) 80.80 mL ESV (Teich) 39.10 mL LV Diastology E/A Ratio 0.67 Mitral Valve MV A Velocity 82.00 (40-130 cm/s) Left Ventricle Left atrium is mildly enlarged, left ventricle is normal size, mild concentric left ventricular hypertrophy, visually estimated ejection fraction 55% with no regional wall motion abnormality, grade 1 diastolic dysfunction seen without tissue Doppler evidence of raise left atrial pressure. Endocardial surfaces are poorly visualized. Right Ventricle Right atrium and right ventricular mildly enlarged with normal contractility. Aortic Valve Aortic valve is minimally thickened and fibrosed, there is no aortic stenosis or aortic insufficiency. Mitral Valve Mitral valve is grossly normal, there is mild mitral regurgitation. Tricuspid Valve Tricuspid valve is grossly normal, there is mild tricuspid regurgitation. Tricuspid regurgitation jet velocity is inadequate for calculation of the right ventricular systolic pressure. Pulmonic Valve Pulmonic valve is poorly visualized. Great Vessels Aortic root is normal size. Pericardium No significant pericardial effusion noted. Conclusion 1. Mildly enlarged left atrium, normal left ventricular size, mild concentric left ventricular hypertrophy, visually estimated ejection fraction 55% with no regional wall motion abnormality, grade 1 diastolic dysfunction seen without tissue Doppler evidence of raise left atrial pressure. 2. Mildly enlarged right ventricle with normal contractility. 3. Mild mitral and tricuspid regurgitation. 4. No significant pericardial effusion noted. Electronically signed by : Santos Saavedra, 05/26/2020 18:18:28
== END ==
PROVIDERS: PCP Nurse Practitioner Family; Visit Provider Nurse Practitioner Family
DX: R06.00 Dyspnea, unspecified (principal); R60.9 Edema, unspecified; I27.20 Pulmonary hypertension, unspecified; I50.31 Acute diastolic (congestive) heart failure; R53.83 Other fatigue
CPT/HCPCS: 93306

== ENCOUNTER → 2020-05-31 08:03 | Outpatient (CLI) | payer SELFPAY ==
[2020-05-31 08:23] LABS: Chloride 98 mmol/L (98-107); Sodium 139 mmol/L (136-145)
[2020-05-31 08:24] LABS: Potassium 4.1 mmoL/L (3.5-5.1)
[2020-05-31 08:26] LABS: Blood Urea Nitrogen 29 mg/dl (7-17); Estimated Glomerular Filt Rate 42 ml/min (>60); GFR (African American) 51 ML/MIN (>60)
[2020-05-31 08:27] LABS: Anion Gap 19.1 mEq/L (5-15); Carbon Dioxide 26 mmol/L (22.0-30.0); Glucose 172 mg/dl (74-100)
[2020-05-31 08:36] LABS: NT Pro Brain Natriuretic Pep. 47.4 pg/mL (0-125)
== END ==
PROVIDERS: Visit Provider Nurse Practitioner Family
DX: I50.31 Acute diastolic (congestive) heart failure (principal); R06.00 Dyspnea, unspecified; R07.9 Chest pain, unspecified; I27.20 Pulmonary hypertension, unspecified; R53.83 Other fatigue; R60.9 Edema, unspecified
CPT/HCPCS: 36415; 80048; 83880

== ENCOUNTER → 2021-06-17 14:53 | Outpatient (CLI) | payer OTHER, SELFPAY ==
--- NOTE | 2021-06-17 14:54 | CA_ITS ---
APPROVED REPORT EXAM: Comprehensive 2D, Doppler, and color-flow Echocardiogram Environmental Engineering Assistant: Katy Graff RVT Ht: 5 ft 7 in Wt: 259lbs BSA: 2.26 BP: 145/81 mmHg Indications: CHF,PHTN,HTN,FATIGUE,SMOKER,HX CM 2D Dimensions LVOT 2.16 cm (M/F) 1.5-2.5 LA Volume 30.40 mL LA Volume Index 13.51 mL/m2 (M/F) 16-34 M-Mode Dimensions RVDd 3.03 cm (0.9-2.6) LA Diam 4.60 cm (1.9-4.0) LVDd 3.71 cm (3.5-5.7) Ao Diam 3.07 cm (2.0-3.7) LVDs 2.60 cm (3.5-5.7) IVSd 1.76 cm (0.6-1.1) PWd 1.40 cm (0.6-1.1) EF (Teich) 57.90% FS 29.90% EDV (Teich) 58.50 mL TAPSE 1.49 (<1.7) ESV (Teich) 24.60 mL LV Diastology E Decel Time 293.00 (160-240 msec) E/A Ratio 0.6 MED E' 6.20 (< 7 cm/sec) E'/MED E' Ratio 8.35 (>14) LAT E' 5.40 (<10 cm/sec) E/LAT E' Ratio 9.59 (>14) Aortic Valve AO Peak GR. 5.60 mmHg Mitral Valve MV E Max Cole. 52.00 (40-130 cm/s) MV A Velocity 83.00 (40-130 cm/s) E/A Ratio 0.62 MV Decel. Time 293.00 (160-240 ms) MV PHT 86.00 ms Pulmonary Valve PV Peak Velocity 80.00 (50-150 cm/s) Tricuspid Valve TR P. Velocity 167.00 cm/s RAP Estimate 10.00 mmHg RVSP 21.20 mmHg Left Ventricle Left atrium is mildly enlarged, left ventricle is normal size, mild concentric left ventricular hypertrophy, visually estimated ejection fraction 55% with no obvious regional wall motion abnormality. Grade 1 diastolic dysfunction seen without tissue Doppler evidence of raise left atrial pressure. Right Ventricle Right atrium and right ventricle are mildly enlarged with normal contractility. Aortic Valve Aortic valve is minimally thickened and fibrosed, there is no aortic stenosis or aortic insufficiency. Mitral Valve Mitral valve grossly normal, there is trace mitral regurgitation. Tricuspid Valve Tricuspid valve grossly normal, there is trace tricuspid regurgitation, tricuspid regurgitation jet velocity is inadequate for calculation of the right ventricular systolic pressure. Pulmonic Valve Pulmonic valve is poorly visualized. Great Vessels Aortic root is normal size. Inferior vena cava is poorly visualized. Pericardium No significant pericardial effusion noted. Conclusion 1. Mild biatrial enlargement, normal left ventricular size, mild concentric left ventricular hypertrophy, visually estimated ejection fraction 55% with no regional wall motion abnormality, grade 1 diastolic dysfunction seen without tissue Doppler evidence of raise left atrial pressure. 2. Mildly enlarged right ventricle with normal contractility. 3. Trace mitral and tricuspid regurgitation. 4. No significant pericardial effusion noted. Electronically signed by : Santos Saavedra MD 06/17/2021 17:52:37
[2021-06-17 15:53] LABS: Basophils # 0.1 K/mm3 (0-0.2); Basophils % 0.7 % (0.1-2.0); Eosinophils # 0.4 K/mm3 (0.0-0.4); Eosinophils % 2.1 % (0.1-12.0); Hematocrit 42.4 % (37.0-47.0); Hemoglobin 13.8 g/dL (12.2-16.2); Lymphocytes # 4.5 K/mm3 (0.7-4.5); Lymphocytes % 26.6 % (10-50); Mean Corpuscular HGB Conc 32.6 g/dL (31.8-35.4); Mean Corpuscular Hemoglobin 29.7 pg (27.0-31.2); Mean Platelet Volume 8.2 fl (7.4-10.4); Monocytes # 0.7 K/mm3 (0.1-1.0); Monocytes % 4.2 % (1.7-9.3); Neutrophils # 11.2 K/mm3 (1.8-7.8); Neutrophils % 66.3 % (37.0-80.0); Platelet Count 452 K/mm3 (142-424); Red Blood Count 4.65 M/mm3 (4.20-5.40); Red Cell Distribution Width 14.7 % (11.5-17.5); White Blood Count 16.9 K/mm3 (4.8-10.8)
[2021-06-17 16:04] LABS: MANUAL DIFFERENTIAL MANUAL DIFFERENTIAL (MANUAL DIFF)
[2021-06-17 16:18] LABS: Eosinophils % 1 % (0-3); Lymphocytes % 26 % (10-50); Monocytes % 5 % (2-9); Neutrophils % 68 % (42-76); Platelet Estimate Normal; RBC Morphology Normal; Total Cells Counted 100
[2021-06-17 16:43] LABS: Chloride 100 mmol/L (98-107); Potassium 4.1 mmoL/L (3.5-5.1); Sodium 139 mmol/L (136-145)
[2021-06-17 16:46] LABS: Alanine Aminotransferase 32 U/L (12-78); Alkaline Phosphatase 105 U/L (38-126); Anion Gap 15.1 mEq/L (5-15); Aspartate Amino Transferase 32 U/L (14-36); Bilirubin,Direct 0.2 mg/dl (0.0-0.4); Bilirubin,Total 0.2 mg/dl (0.2-1.3); Blood Urea Nitrogen 26 mg/dl (7-17); Calcium 9.4 mg/dl (8.4-10.2); Carbon Dioxide 28 mmol/L (22.0-30.0); Cholesterol 274 mg/dl (140-200); Estimated Glomerular Filt Rate 46 ml/min (>60); GFR (African American) 55 ML/MIN (>60); Glucose 96 mg/dl (74-100)
[2021-06-17 16:47] LABS: Chol/HDL Ratio 8.6 (1-3.5); HDL Cholesterol 32 mg/dl (40-60)
[2021-06-17 16:48] LABS: Triglycerides 430 mg/dl (30-150)
== END ==
PROVIDERS: Urology; PCP Family Medicine; Visit Provider Physician Assistant
DX: I50.30 Unspecified diastolic (congestive) heart failure (principal); I50.9 Heart failure, unspecified; I10 Essential (primary) hypertension; R60.9 Edema, unspecified; R53.83 Other fatigue
CPT/HCPCS: 36415; 80048; 80061; 80076; 84439; 84443; 85007; 85025; 93306

== ENCOUNTER → 2021-07-19 10:19 | Outpatient (CLI) | payer OTHER, SELFPAY ==
--- NOTE | 2021-07-19 10:22 | XR_ITS ---
PROCEDURE: XR CHEST 2V CLINICAL HISTORY: dyspnea, tobacco use COMPARISON: CT AGCHEST CT angio chest from 11/14/2017 CR CXR2V XR chest 2V from 11/14/2017 CR CXR2V XR chest 2V from 10/17/2018 CR XR CHEST 2V from 05/19/2020 FINDINGS: The cardiomediastinal silhouette and pulmonary vascularity are within normal limits. The lungs are clear without infiltrates, suspicious nodules, or pleural effusions. No acute bony abnormalities. IMPRESSION: No acute findings. Dictated by: Gerard Ridley MD 07/19/2021 16:29 Gerard Ridley MD in [facility] 07/19/2021 16:29
== END ==
PROVIDERS: PCP Family Medicine; Visit Provider Physician Assistant
DX: R06.00 Dyspnea, unspecified (principal); F17.200 Nicotine dependence, unspecified, uncomplicated
CPT/HCPCS: 71046

== ENCOUNTER → 2021-09-12 08:04 | Outpatient (CLI) | payer OTHER, SELFPAY ==
[2021-09-12 08:50] VITALS: PULSE 70; PULSE 73
== END ==
PROVIDERS: PCP Family Medicine; Visit Provider Family Medicine
DX: R06.02 Shortness of breath (principal)
CPT/HCPCS: 94060; 94618; 94640; 94727; 94729

== ENCOUNTER → 2022-10-06 14:37 | Outpatient (CLI) | payer OTHER, SELFPAY ==
[2022-10-06 15:12] LABS: Basophils # 0.2 K/mm3 (0-0.2); Basophils % 1.2 % (0.1-2.0); Eosinophils # 0.4 K/mm3 (0.0-0.4); Eosinophils % 2.4 % (0.1-12.0); Hematocrit 44.4 % (37.0-47.0); Hemoglobin 14.5 g/dL (12.2-16.2); Lymphocytes # 4.1 K/mm3 (0.7-4.5); Lymphocytes % 26.4 % (10-50); Mean Corpuscular HGB Conc 32.6 g/dL (31.8-35.4); Mean Platelet Volume 8.3 fl (7.4-10.4); Monocytes # 0.7 K/mm3 (0.1-1.0); Monocytes % 4.5 % (1.7-9.3); Neutrophils # 10.2 K/mm3 (1.8-7.8); Neutrophils % 65.5 % (37.0-80.0); Platelet Count 385 K/mm3 (142-424); Red Blood Count 4.99 M/mm3 (4.20-5.40); Red Cell Distribution Width 14.7 % (11.5-17.5); White Blood Count 15.6 K/mm3 (4.8-10.8)
[2022-10-06 15:22] LABS: MANUAL DIFFERENTIAL MANUAL DIFFERENTIAL (MANUAL DIFF)
[2022-10-06 15:46] LABS: Alanine Aminotransferase 28 U/L (12-78); Albumin Level 4.6 g/dl (3.5-5.0); Alkaline Phosphatase 101 U/L (38-126); Anion Gap 16.3 mEq/L (5-15); Aspartate Amino Transferase 30 U/L (14-36); Bilirubin,Direct 0.2 mg/dl (0.0-0.4); Bilirubin,Indirect 0.3 mg/dL (0.0-0.9); Bilirubin,Total 0.5 mg/dl (0.2-1.3); Bilirubin,Unconjugated 0.4 mg/dL (0.0-1.1); Blood Urea Nitrogen 19 mg/dl (7-17); Calcium 9.5 mg/dl (8.4-10.2); Carbon Dioxide 26 mmol/L (22.0-30.0); Chloride 105 mmol/L (98-107); Chol/HDL Ratio 5.3 (1-3.5); Cholesterol 168 mg/dl (140-200); Estimated Glomerular Filt Rate 46 ml/min (>60); GFR (African American) 55 ML/MIN (>60); Glucose 120 mg/dl (74-100); HDL Cholesterol 32 mg/dl (40-60); Magnesium 1.9 mg/dl (1.6-2.3); Potassium 5.3 mmoL/L (3.5-5.1); Sodium 142 mmol/L (136-145); Total Protein,Serum 7.4 g/dl (6.3-8.2); Triglycerides 286 mg/dl (30-150); VLDL Cholesterol 57 mg/dL (0-40)
[2022-10-06 15:56] LABS: NT Pro Brain Natriuretic Pep. 64.6 pg/mL (0-125)
[2022-10-06 15:57] LABS: Eosinophils % 1 % (0-3); Lymphocytes % 24 % (10-50); Monocytes % 3 % (2-9); Neutrophils % 72 % (42-76); Platelet Estimate Normal; RBC Morphology Normal; Total Cells Counted 100
[2022-10-06 16:03] LABS: Free T4 (Free Thyroxine) 1.01 ng/dl (0.78-2.19)
[2022-10-06 16:04] LABS: Direct LDL Cholesterol 86.33 mg/dL (100-129)
[2022-10-06 16:17] LABS: Thyroid Stimulating Hormone 2.47 uIU/mL (0.465-4.68)
== END ==
PROVIDERS: PCP Family Medicine; Visit Provider Internal Medicine Cardiovascular Disease
DX: R06.02 Shortness of breath (principal); I42.8 Other cardiomyopathies; I11.0 Hypertensive heart disease with heart failure; I50.23 Acute on chronic systolic (congestive) heart failure; I50.33 Acute on chronic diastolic (congestive) heart failure; E78.5 Hyperlipidemia, unspecified
CPT/HCPCS: 36415; 80048; 80061; 80076; 83735; 83880; 84439; 84443; 85007; 85025

== ENCOUNTER → 2022-10-12 14:26 | Outpatient (CLI) | payer OTHER, SELFPAY ==
--- NOTE | 2022-10-12 14:31 | CA_ITS ---
APPROVED REPORT EXAM: Comprehensive 2D, Doppler, and color-flow Echocardiogram Assembler Truck Trailer: Katy Graff RVT Ht: 5 ft 7 in Wt: 303lbs BSA: 2.41 BP: 122/72 mmHg Indications: CHF,SOA,HX CM,HLD,HTN,OBESITY 2D Dimensions LVOT 1.94 cm (M/F) 1.5-2.5 M-Mode Dimensions RVDd 3.71 cm (0.9-2.6) LA Diam 4.64 cm (1.9-4.0) LVDd 4.07 cm (3.5-5.7) Ao Diam 3.54 cm (2.0-3.7) LVDs 2.64 cm (3.5-5.7) IVSd 1.30 cm (0.6-1.1) PWd 1.12 cm (0.6-1.1) EF (Teich) 64.90% FS 35.10% EDV (Teich) 72.90 mL TAPSE 1.70 (<1.7) ESV (Teich) 25.60 mL LV Diastology E Decel Time 320.00 (160-240 msec) E/A Ratio 0.6 MED E' 7.90 (< 7 cm/sec) E'/MED E' Ratio 6.67 (>14) LAT E' 5.40 (<10 cm/sec) E/LAT E' Ratio 9.76 (>14) Aortic Valve AO Peak GR. 5.50 mmHg Mitral Valve MV E Max Cole. 53.00 (40-130 cm/s) MV A Velocity 86.00 (40-130 cm/s) E/A Ratio 0.61 MV Decel. Time 320.00 (160-240 ms) MV PHT 94.00 ms Pulmonary Valve PV Peak Velocity 82.00 (50-150 cm/s) Left Ventricle Left atrium is mildly enlarged, left ventricle is normal size mild concentric left ventricular hypertrophy, estimated ejection fraction 55% with no regional wall motion abnormality, grade 1 diastolic dysfunction seen without tissue Doppler evidence of raise left atrial pressure. Right Ventricle Right atrium and right ventricle are mildly enlarged with normal contractility. Aortic Valve Aortic valve is minimally thickened and fibrosed there is no aortic stenosis or aortic insufficiency. Mitral Valve Mitral valve grossly normal, there is trace mitral regurgitation. Tricuspid Valve Tricuspid valve grossly normal, there is trace tricuspid regurgitation, tricuspid regurgitation jet velocity is inadequate for calculation of the right ventricular systolic pressure. Pulmonic Valve Pulmonic valve is poorly visualized. Great Vessels Aortic root is normal size. Inferior vena cava is poorly visualized. Pericardium No significant pericardial effusion noted. Conclusion 1. Mild biatrial normal, normal left ventricular size, mild concentric left ventricular hypertrophy, estimated ejection fraction 55% with no regional wall motion abnormality, grade 1 diastolic dysfunction seen without tissue Doppler evidence of raise left atrial pressure. 2. Mildly enlarged right ventricle with normal contractility. 3. Trace mitral and tricuspid regurgitation. 4. No significant pericardial effusion noted. 5. Inferior vena cava is poorly visualized. Electronically signed by : Santos Saavedra MD 10/13/2022 16:02:59
== END ==
PROVIDERS: PCP Family Medicine; Visit Provider Internal Medicine Cardiovascular Disease
DX: R06.02 Shortness of breath (principal); I50.23 Acute on chronic systolic (congestive) heart failure; I42.8 Other cardiomyopathies
CPT/HCPCS: 93306

== ENCOUNTER → 2023-05-23 14:02 | Outpatient (CLI) | payer OTHER, SELFPAY ==
--- NOTE | 2023-05-23 14:02 | CT_ITS ---
FINAL REPORT CLINICAL HISTORY: Hemoptysis COMPARISON: 11/14/2017 FINDINGS: Thin section axial CT images of the chest were obtained with contrast. 3D reformatted images were also obtained. This study was performed with techniques to keep radiation doses as low as reasonably achievable (ALARA). Individualized dose reduction techniques using automated exposure control or adjustment of mA and/or kV according to the patient''s size were employed. There is no evidence of pulmonary embolism. There is no evidence of thoracic aortic aneurysm or dissection. There is no evidence of mediastinal or hilar mass or adenopathy. There is no evidence of pulmonary mass or nodule. No localized inflammatory process is seen within the lungs. Limited images of the upper abdomen demonstrate mild fatty liver. There is a small right posterior diaphragmatic hernia containing fat. IMPRESSION: No evidence of pulmonary embolism. No mass or localized inflammatory process. Reviewed, Interpreted and Dictated by Dominik Yee III, MD Transcribed by Erica Huynh Authenticated and [facility]
== END ==
PROVIDERS: PCP Family Medicine; Visit Provider Internal Medicine Pulmonary Disease
DX: R06.09 Other forms of dyspnea (principal); R04.2 Hemoptysis
CPT/HCPCS: 71275; Q9967

== ENCOUNTER → 2023-06-07 16:52 | Outpatient (CLI) | payer OTHER, SELFPAY | PROVIDERS: PCP Physician Assistant; Visit Provider Internal Medicine Pulmonary Disease | DX: R06.02 Shortness of breath (principal) | CPT/HCPCS: 94762 ==

== ENCOUNTER → 2023-06-12 14:06 | Outpatient (CLI) | payer OTHER, SELFPAY ==
[2023-05-21 17:36] LABS: Alanine Aminotransferase 23 U/L (12-78); Albumin Level 4.3 g/dl (3.5-5.0); Alkaline Phosphatase 133 U/L (38-126); Anion Gap 16.5 mEq/L (5-15); Aspartate Amino Transferase 23 U/L (14-36); Bilirubin,Indirect 0.4 mg/dL (0.0-0.9); Bilirubin,Total 0.4 mg/dl (0.2-1.3); Bilirubin,Unconjugated 0.6 mg/dL (0.0-1.1); Blood Urea Nitrogen 10 mg/dl (7-17); Calcium 9.6 mg/dl (8.4-10.2); Carbon Dioxide 25 mmol/L (22.0-30.0); Chloride 104 mmol/L (98-107); Chol/HDL Ratio 4.5 (1-3.5); Cholesterol 156 mg/dl (140-200); Estimated Glomerular Filt Rate 56 ml/min (>60); GFR (African American) 68 ML/MIN (>60); Glucose 99 mg/dl (74-100); HDL Cholesterol 35 mg/dl (40-60); Magnesium 1.8 mg/dl (1.6-2.3); Potassium 4.5 mmoL/L (3.5-5.1); Sodium 141 mmol/L (136-145); Total Protein,Serum 7.5 g/dl (6.3-8.2); Triglycerides 220 mg/dl (30-150); VLDL Cholesterol 44 mg/dL (0-40)
[2023-05-21 17:48] LABS: Basophils # 0.1 K/mm3 (0-0.2); Basophils % 0.4 % (0.1-2.0); Eosinophils # 0.3 K/mm3 (0.0-0.4); Eosinophils % 1.9 % (0.1-12.0); Hematocrit 43.5 % (37.0-47.0); Lymphocytes # 4.3 K/mm3 (0.7-4.5); Lymphocytes % 27.8 % (10-50); Mean Corpuscular HGB Conc 32.2 g/dL (31.8-35.4); Mean Corpuscular Hemoglobin 27.9 pg (27.0-31.2); Mean Corpuscular Volume 86.8 fl (81-99); Mean Platelet Volume 9.1 fl (7.4-10.4); Monocytes # 0.8 K/mm3 (0.1-1.0); Monocytes % 5.1 % (1.7-9.3); Neutrophils # 10.1 K/mm3 (1.8-7.8); Neutrophils % 64.8 % (37.0-80.0); Platelet Count 352 K/mm3 (142-424); Red Blood Count 5.01 M/mm3 (4.20-5.40); Red Cell Distribution Width 14.8 % (11.5-17.5); White Blood Count 15.6 K/mm3 (4.8-10.8)
[2023-05-21 17:51] LABS: MANUAL DIFFERENTIAL MANUAL DIFFERENTIAL (MANUAL DIFF)
[2023-05-21 17:53] LABS: Free T4 (Free Thyroxine) 0.93 ng/dl (0.78-2.19)
[2023-05-21 18:07] LABS: Thyroid Stimulating Hormone 3.09 uIU/mL (0.465-4.68)
[2023-05-21 18:10] LABS: Direct LDL Cholesterol 79.28 mg/dL (100-129)
[2023-05-21 18:31] LABS: C-Reactive Protein 18.9 mg/L (0-4)
[2023-05-21 18:45] LABS: Eosinophils % 1 % (0-3); Hypochromasia 1+; Lymphocytes % 31 % (10-50); Monocytes % 5 % (2-9); Neutrophils % 63 % (42-76); Platelet Estimate Normal; Total Cells Counted 100
[2023-05-26 19:37] LABS: D001-IgE D pteronyssinus <0.10 kU/L (Class 0); D002-IgE D farinae <0.10 kU/L (Class 0); E001-IgE Cat Dander <0.10 kU/L (Class 0); E005-IgE Dog Dander <0.10 kU/L (Class 0); E072-IgE Mouse Urine <0.10 kU/L (Class 0); G002-IgE Bermuda Grass <0.10 kU/L (Class 0); G006-IgE Timothy Grass <0.10 kU/L (Class 0); I006-IgE Cockroach, German <0.10 kU/L (Class 0); Immunoglobulin E, Total 23 IU/mL (6-495); M001-IgE Penicillium chrysogen <0.10 kU/L (Class 0); M002-IgE Cladosporium herbarum <0.10 kU/L (Class 0); M003-IgE Aspergillus fumigatus <0.10 kU/L (Class 0); M006-IgE Alternaria alternata <0.10 kU/L (Class 0); T001-IgE Maple/Box Elder <0.10 kU/L (Class 0); T003-IgE Common Silver Birch <0.10 kU/L (Class 0); T006-IgE Cedar, Mountain <0.10 kU/L (Class 0); T007-IgE Oak, White <0.10 kU/L (Class 0); T008-IgE Elm, American <0.10 kU/L (Class 0); T010-IgE Walnut <0.10 kU/L (Class 0); T011-IgE Maple Leaf Sycamore <0.10 kU/L (Class 0); T014-IgE Cottonwood <0.10 kU/L (Class 0); T015-IgE Ash, White <0.10 kU/L (Class 0); T022-IgE Pecan, Hickory <0.10 kU/L (Class 0); T070-IgE White Mulberry <0.10 kU/L (Class 0); W001-IgE Ragweed, Short <0.10 kU/L (Class 0); W011-IgE Thistle, Russian <0.10 kU/L (Class 0); W014-IgE Pigweed, Common <0.10 kU/L (Class 0); W018-IgE Sheep Sorrel <0.10 kU/L (Class 0)
== END ==
PROVIDERS: Physician Assistant; Visit Provider Internal Medicine Pulmonary Disease
DX: R06.02 Shortness of breath (principal); R06.09 Other forms of dyspnea; I42.8 Other cardiomyopathies; I27.20 Pulmonary hypertension, unspecified; I11.0 Hypertensive heart disease with heart failure; I50.23 Acute on chronic systolic (congestive) heart failure; I50.30 Unspecified diastolic (congestive) heart failure; I50.9 Heart failure, unspecified; E78.5 Hyperlipidemia, unspecified; J30.9 Allergic rhinitis, unspecified; F17.200 Nicotine dependence, unspecified, uncomplicated
CPT/HCPCS: 36415; 80048; 80061; 80076; 82785; 83735; 84439; 84443; 85007; 85025; 86003; 86140

== ENCOUNTER → 2023-07-05 07:59 | Outpatient (CLI) | payer OTHER, SELFPAY | PROVIDERS: Visit Provider Internal Medicine Pulmonary Disease | DX: R06.09 Other forms of dyspnea (principal); F17.210 Nicotine dependence, cigarettes, uncomplicated | CPT/HCPCS: 94060; 94618; 94726; 94729 ==

== ENCOUNTER → 2023-08-28 20:19 | Outpatient (CLI) | payer OTHER, SELFPAY | LOC: SL 20:21 | PROVIDERS: PCP Physician Assistant; Visit Provider Internal Medicine Pulmonary Disease | DX: G47.33 Obstructive sleep apnea (adult) (pediatric) (principal); G47.10 Hypersomnia, unspecified; G47.36 Sleep related hypoventilation in conditions classified elsewhere; R06.83 Snoring; I50.9 Heart failure, unspecified | CPT/HCPCS: 95811 ==

== ENCOUNTER 2024-04-17 08:52 | Outpatient (CLI) | payer OTHER, SELFPAY ==
--- NOTE | 2024-04-17 08:53 | CA_ITS ---
APPROVED REPORT EXAM: Comprehensive 2D, Doppler, and color-flow Echocardiogram Geophysical Manager: Beryl Tierney CRT Ht: 5 ft 7 in Wt: 304lbs BSA: 2.42 BP: 143/71 mmHg Indications: chest Pain, Pulmonary Hypertension, Dyspnea, Hyperlipidemia, Hypertension/HDD. smoker, hx covid multiple times,bobbi,asthma 2D Dimensions LA Volume 39.00 mL LA Volume Index 15.80 mL/m2 (M/F) 16-34 M-Mode Dimensions RVDd 3.61 cm (0.9-2.6) LA Diam 4.22 cm (1.9-4.0) LVDd 5.22 cm (3.5-5.7) LVDs 3.44 cm (3.5-5.7) IVSd 1.40 cm (0.6-1.1) PWd 0.93 cm (0.6-1.1) EF (Teich) 62.70% FS 34.10% EDV (Teich) 130.70 mL TAPSE 2.17 (<1.7) ESV (Teich) 48.80 mL LV Diastology E Decel Time 263 (160-240 msec) E/A Ratio 0.67 MED A' 10.60 cm/s LAT A' 9.00 cm/s Aortic Valve AO Peak GR. 8.80 mmHg Mitral Valve MV A Velocity 91.0 (40-130 cm/s) E/A Ratio 0.67 Pulmonary Valve PV Peak Velocity 148.0 (50-150 cm/s) Tricuspid Valve TR P. Velocity 297.00 cm/s RAP Estimate 10.00 mmHg RVSP 45.20 mmHg Left Ventricle The left ventricle is normal size. The left ventricular systolic function is normal. The left ventricular ejection fraction is within the normal range. There is increased LV wall thickness. There is normal LV segmental wall motion. Transmitral Doppler flow pattern suggests impaired LV relaxation. LVEF is 60%. Right Ventricle Right ventricle is mildly dilated. The right ventricular systolic function is normal. Atria The left atrium size is normal. The right atrium size is normal. There is no Doppler evidence of interatrial shunt. Aortic Valve The aortic valve is mildly thickened. There is no aortic valvular stenosis. No aortic regurgitation is present. Mitral Valve The mitral valve leaflets are mildly thickened. No evidence of mitral valve stenosis. There is no mitral valve regurgitation noted. Tricuspid Valve The tricuspid valve leaflets are thin and pliable. Trace tricuspid regurgitation. There is insufficient TR jet to estimate RVSP. Pulmonic Valve The pulmonary valve is normal in structure. Trace pulmonic regurgitation. Great Vessels The aortic root is normal in size. The ascending aorta is normal in size. IVC is normal in size and collapses >50% with inspiration. Pericardium There is no pericardial effusion. Other Information Study Quality: Fair Conclusion Normal biventricular systolic function. Mild RV dilation. No significant valvular stenosis or regurgitation. Electronically signed by : Anjelica Torres MD 04/23/2024 02:17:36
[2024-04-17 10:02] LABS: Basophils # 0.1 K/mm3 (0-0.2); Basophils % 0.9 % (0.1-2.0); Eosinophils # 0.2 K/mm3 (0.0-0.4); Eosinophils % 1.8 % (0.1-12.0); Hematocrit 37.2 % (37.0-47.0); Hemoglobin 11.8 g/dL (12.2-16.2); Lymphocytes # 4.2 K/mm3 (0.7-4.5); Lymphocytes % 34.7 % (10-50); Mean Corpuscular HGB Conc 31.6 g/dL (31.8-35.4); Mean Corpuscular Hemoglobin 29.2 pg (27.0-31.2); Mean Corpuscular Volume 92.3 fl (81-99); Monocytes # 0.6 K/mm3 (0.1-1.0); Monocytes % 5.1 % (1.7-9.3); Neutrophils # 6.9 K/mm3 (1.8-7.8); Neutrophils % 57.4 % (37.0-80.0); Platelet Count 298 K/mm3 (142-424); Red Blood Count 4.03 M/mm3 (4.20-5.40); Red Cell Distribution Width 15.2 % (11.5-17.5); White Blood Count 12.1 K/mm3 (4.8-10.8)
[2024-04-17 10:37] LABS: Alanine Aminotransferase 28 U/L (12-78); Albumin Level 4.2 g/dl (3.5-5.0); Alkaline Phosphatase 87 U/L (38-126); Anion Gap 10.9 mEq/L (5-15); Aspartate Amino Transferase 25 U/L (14-36); Bilirubin,Indirect 0.5 mg/dL (0.0-0.9); Bilirubin,Total 0.5 mg/dl (0.2-1.3); Bilirubin,Unconjugated 0.5 mg/dL (0.0-1.1); Blood Urea Nitrogen 28 mg/dl (7-17); Calcium 9.5 mg/dl (8.4-10.2); Carbon Dioxide 26 mmol/L (22.0-30.0); Chloride 109 mmol/L (98-107); Chol/HDL Ratio 3.7 (1-3.5); Cholesterol 150 mg/dl (140-200); Estimated Glomerular Filt Rate 56 ml/min (>60); GFR (African American) 68 ML/MIN (>60); Glucose 113 mg/dl (74-100); HDL Cholesterol 41 mg/dl (40-60); Magnesium 1.9 mg/dl (1.6-2.3); Potassium 4.9 mmoL/L (3.5-5.1); Sodium 141 mmol/L (136-145); Triglycerides 213 mg/dl (30-150); VLDL Cholesterol 43 mg/dL (0-40)
[2024-04-17 10:46] LABS: NT Pro Brain Natriuretic Pep. 41.6 pg/mL (0-125)
[2024-04-17 10:48] LABS: Direct LDL Cholesterol 62.09 mg/dL (100-129)
[2024-04-17 11:08] LABS: Thyroid Stimulating Hormone 4.63 uIU/mL (0.465-4.68)
== END 2024-04-17 23:59 | disposition home or self-care (01) ==
LOC: RT 08:53
PROVIDERS: PCP Internal Medicine; Visit Provider Physician Assistant
DX: R06.09 Other forms of dyspnea (principal); I27.20 Pulmonary hypertension, unspecified; I50.23 Acute on chronic systolic (congestive) heart failure; F17.210 Nicotine dependence, cigarettes, uncomplicated
CPT/HCPCS: 80048; 80061; 80076; 83735; 83880; 84443; 85025; 93306

== ENCOUNTER 2024-06-04 15:29 | Outpatient (CLI) | payer OTHER, SELFPAY ==
--- NOTE | 2024-06-04 15:29 | CT_ITS ---
FINAL REPORT TECHNIQUE: Thin section axial images were obtained from the lung apices to the upper abdomen by computed tomography. Reformatted images were obtained and reviewed. This study was performed with techniques to keep radiation doses al low as reasonably achievable (ALARA). Individualized dose reduction techniques using automated exposure control or adjustment of mA and/or kV according to the patient's size were employed. CLINICAL HISTORY: lung cancer screening currently a smoker, smokes 1 pack per week, has been a smoker for 23 years, has CHF, father had lung cancer COMPARISON: CTA of the chest dated 05/23/2023 FINDINGS: CHEST CT LOW DOSE 63-year-old female, current smoker, 12-cfpt-hdqe history. CTDI vol (mGy): 2.9 DLP (mGy-cm): 96.64 There is no axillary adenopathy. There is no mediastinal or hilar mass or adenopathy. The heart is normal in size. There is no pericardial or pleural effusion. Lung window images demonstrate a calcified granuloma in the right upper lobe.. Limited images of the upper abdomen reveal fatty infiltration of the liver.. IMPRESSION: Lung-RADS category 1 S, the S designation for fatty infiltration of the liver. Recommend 12 month follow up low dose chest CT. Reviewed, Interpreted and Dictated by Patricio Gusman MD Transcribed by Stacey Guzman Authenticated and [facility]
== END 2024-06-04 23:59 | disposition home or self-care (01) ==
LOC: RAD 15:29
PROVIDERS: PCP Internal Medicine; Visit Provider Internal Medicine Pulmonary Disease
DX: F17.210 Nicotine dependence, cigarettes, uncomplicated (principal)
CPT/HCPCS: 71271

== ENCOUNTER 2024-06-18 14:56 | Outpatient (CLI) | payer OTHER, SELFPAY ==
[2024-06-18 15:48] LABS: Alanine Aminotransferase 21 U/L (12-78); Alkaline Phosphatase 87 U/L (38-126); Aspartate Amino Transferase 20 U/L (14-36); Bilirubin,Direct 0.2 mg/dl (0.0-0.4); Bilirubin,Indirect 0.2 mg/dL (0.0-0.9); Bilirubin,Total 0.4 mg/dl (0.2-1.3); Bilirubin,Unconjugated 0.2 mg/dL (0.0-1.1)
== END 2024-06-18 23:59 | disposition home or self-care (01) ==
LOC: LAB 14:57
PROVIDERS: PCP Internal Medicine; Visit Provider Internal Medicine Pulmonary Disease
DX: K76.0 Fatty (change of) liver, not elsewhere classified (principal)
CPT/HCPCS: 36415; 80076